=== PATIENT | male | born 1950 | race Caucasian/White ===

== ENCOUNTER → 2023-12-01 14:29 | Outpatient (REF) | payer MEDICARE, OTHER, SELFPAY | LOC: DHCBC MAIN 14:29 | PROVIDERS: ATTENDING PHYSICIAN Internal Medicine Cardiovascular Disease; FAMILY PHYSICIAN Internal Medicine | DX: I63.9 Cerebral infarction, unspecified (principal) | CPT/HCPCS: 93306 ==

== ENCOUNTER → 2023-12-07 15:32 | Outpatient (REF) | payer MEDICARE, OTHER, SELFPAY | LOC: RAD 15:32 | PROVIDERS: ATTENDING PHYSICIAN Psychiatry & Neurology Neurology; FAMILY PHYSICIAN Internal Medicine | DX: I63.9 Cerebral infarction, unspecified (principal) | CPT/HCPCS: 70496; 70498; Q9967 ==

== ENCOUNTER → 2023-12-25 07:41 | Outpatient (REF) | payer MEDICARE, OTHER, SELFPAY | LOC: RAD 07:41 | PROVIDERS: ATTENDING PHYSICIAN Internal Medicine Cardiovascular Disease; FAMILY PHYSICIAN Internal Medicine | DX: I63.9 Cerebral infarction, unspecified (principal); I63.89 Other cerebral infarction | CPT/HCPCS: 93880 ==

== ENCOUNTER → 2023-12-28 09:55 | Outpatient (REF) | payer MEDICARE, OTHER, SELFPAY | LOC: RST 09:55 | PROVIDERS: ATTENDING PHYSICIAN Internal Medicine | DX: I63.9 Cerebral infarction, unspecified (principal); R13.10 Dysphagia, unspecified | CPT/HCPCS: 74230; 92611 ==

== ENCOUNTER → 2024-02-06 07:35 | Outpatient (REF) | payer MEDICARE, OTHER, SELFPAY | LOC: EMG 07:35 | PROVIDERS: ATTENDING PHYSICIAN Psychiatry & Neurology Neurology; FAMILY PHYSICIAN Internal Medicine | DX: R20.0 Anesthesia of skin (principal) | CPT/HCPCS: 95886; 95911 ==

== ENCOUNTER 2024-02-07 15:48 | Outpatient (RCR) | payer MEDICARE, OTHER, SELFPAY | END 2024-02-07 23:59 | disposition home or self-care (01) | LOC: RST 15:48 | PROVIDERS: ATTENDING PHYSICIAN Internal Medicine | DX: I69.391 Dysphagia following cerebral infarction (principal); I69.322 Dysarthria following cerebral infarction; R13.12 Dysphagia, oropharyngeal phase | CPT/HCPCS: 92507; 92522; 92526; 92610 ==

== ENCOUNTER 2024-03-06 16:14 | Outpatient (RCR) | payer MEDICARE, OTHER, SELFPAY | END 2024-03-06 23:59 | disposition home or self-care (01) | LOC: RST 16:14 | PROVIDERS: ATTENDING PHYSICIAN Internal Medicine | DX: I69.391 Dysphagia following cerebral infarction (principal); R13.12 Dysphagia, oropharyngeal phase; I69.322 Dysarthria following cerebral infarction | CPT/HCPCS: 92507; 92526 ==

== ENCOUNTER → 2024-04-09 10:03 | Outpatient (REF) | payer MEDICARE, OTHER, SELFPAY | LOC: RST 10:03 | PROVIDERS: ATTENDING PHYSICIAN Internal Medicine | DX: I63.9 Cerebral infarction, unspecified (principal); R13.14 Dysphagia, pharyngoesophageal phase | CPT/HCPCS: 74230; 92611 ==

== ENCOUNTER 2024-04-09 10:13 | Outpatient (RCR) | payer MEDICARE, OTHER, SELFPAY | END 2024-04-09 23:59 | disposition home or self-care (01) | LOC: RST 10:13 | PROVIDERS: ATTENDING PHYSICIAN Internal Medicine | DX: I69.391 Dysphagia following cerebral infarction (principal); R13.12 Dysphagia, oropharyngeal phase; I69.322 Dysarthria following cerebral infarction | CPT/HCPCS: 92507; 92526 ==

== ENCOUNTER 2024-04-17 14:27 | Outpatient (RCR) | payer MEDICARE, OTHER, SELFPAY | END 2024-04-17 23:59 | disposition home or self-care (01) | LOC: RST 14:27 | PROVIDERS: ATTENDING PHYSICIAN Internal Medicine | DX: I69.391 Dysphagia following cerebral infarction (principal); R13.12 Dysphagia, oropharyngeal phase; I69.322 Dysarthria following cerebral infarction | CPT/HCPCS: 92507; 92526 ==

== ENCOUNTER 2024-05-15 15:19 | Outpatient (RCR) | payer MEDICARE, OTHER, SELFPAY | END 2024-05-15 23:59 | disposition home or self-care (01) | LOC: RST 15:19 | PROVIDERS: ATTENDING PHYSICIAN Internal Medicine | DX: R13.12 Dysphagia, oropharyngeal phase (principal); R13.10 Dysphagia, unspecified; I69.328 Other speech and language deficits following cerebral infarction; I69.391 Dysphagia following cerebral infarction | CPT/HCPCS: 92526 ==